=== PATIENT | male | born 1940 | race Caucasian/White ===

== ENCOUNTER 2019-05-22 19:40 | Emergency (ER) | payer MEDICARE, BC ==
[2019-05-22] MEDS ORDERED: Bacitracin Oint 1 GM U/D Packet TOP ONE (20:03)
--- NOTE | 2019-05-22 20:05 | EDM.PDOC ---
ED HPI GENERAL MEDICAL PROBLEM - General Chief Complaint: Laceration Stated Complaint: FELL AND HIT HEAD ON CERAMIC FLOOR Time Seen by Provider: 05/22/19 20:00 Source of Information: Reports: Patient, Family History Limitations: Reports: Other (no old records) - History of Present Illness INITIAL COMMENTS - FREE TEXT/NARRATIVE: 79 yo male with Parkinson's dz tripped as he crossed the threshold into his cabin tonight. Hit his L eyebrow area incurring a skin tear and a superficial abrasion. Tetanus is UTD. No neck pain. No LOC or nausea. Is prescribed Eliquis , but has been off it for the past 4 days due to some dental work. Here with his . [place] are [place]. 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 Denies: Nausea : Reports: No Symptoms Musculoskeletal: Reports: No Symptoms. Denies: Neck Pain Skin: Reports: No Symptoms Neurological: Reports: Other (Parkinson's dz). Denies: Headache Psychiatric: Reports: No Symptoms ED EXAM, SKIN/RASH Exam: See Below Exam Limited By: No Limitations General Appearance: Alert, WD/WN, No Apparent Distress, Thin Eye Exam: Bilateral Eye: Normal Inspection Ears: Normal External Exam, Normal Canal, Hearing Grossly Normal, Normal TMs Nose: Normal Inspection, No Blood Throat/Mouth: Normal Inspection, Normal Lips, Normal Oropharynx, Normal Voice, No Airway Compromise Head: Atraumatic, Normocephalic Neck: Normal Inspection, Supple, Non-Tender, Full Range of Motion Respiratory/Chest: No Respiratory Distress, Lungs Clear, No Accessory Muscle Use , Chest Non-Tender Cardiovascular: Regular Rate, Rhythm, No Edema GI/Abdominal: Soft, Non-Tender Extremities: Normal Inspection, Normal Range of Motion, Non-Tender, No Pedal Edema Neurological: Alert, Oriented, CN II-XII Intact, Normal Cognition, No Motor/ Sensory Deficits Psychiatric: Normal Affect, Normal Mood Skin: Warm, Dry, Normal Color, No Rash, Wound/Incision (1.5 cm superficial L eyebrow laceration with good wound edge approx and no active bleeding. There is a superimposed partial thickness skin tear as well. ) Location, Skin: Face Characteristics: Linear Associated features: Tenderness. No: Warmth, Swelling, Induration, Lymphangitis Course - Vital Signs Text/Narrative:: minor debridement of wound, cleaning, and a dressing(per RN with Bacitracin). Last Recorded V/S: Last Vital Signs Temp 35.6 C 05/22/19 19:54 Pulse 60 05/22/19 19:54 Resp 20 05/22/19 19:54 BP 122/38 L 05/22/19 19:54 Pulse Ox 99 05/22/19 19:54 - Orders/Labs/Meds Meds: Medications Discontinued Medications Generic Name Dose Route Start Last Admin Trade Name Freq PRN Reason Stop Dose Admin Bacitracin 1 dose 05/22/19 20:03 Bacitracin Oint 1 Gm TOP 05/22/19 20:04 ONETIME ONE Departure - Departure Time of Disposition: 20:30 Disposition: Home, Self-Care 01 Condition: Fair Clinical Impression: Eyebrow laceration Qualifiers: Encounter type: initial encounter Laterality: left Qualified Code(s): S01.112A - Laceration without foreign body of left eyelid and periocular area, initial encounter - Discharge Information *PRESCRIPTION DRUG MONITORING PROGRAM REVIEWED*: No *COPY OF PRESCRIPTION DRUG MONITORING REPORT IN PATIENT SILVIA: No Instructions: Laceration Care, Adult, [id number] Referrals: PCP,None [Primary Care Provider] - Forms: ED Department Discharge Additional Instructions: Clean wound twice daily with 1/2 water and 1/2 peroxide. Dry. Apply Bacitracin ointment and a new dressing(at night). Recheck for signs of infection. Acetaminophen as needed for pain relief.
== END 2019-05-22 20:35 | disposition home or self-care (01) ==
LOC: JP.ED 19:40
DX: S01.112A Laceration without foreign body of left eyelid and periocular area, initial encounter (principal); W22.8XXA Striking against or struck by other objects, initial encounter
CPT/HCPCS: 99282